=== PATIENT | female | born 1995 | race African-American/Black ===

== ENCOUNTER 2016-10-21 19:12 | Emergency (ER) | payer OTHER ==
[2016-10-21 19:27] VITALS: BP 119/60; TEMP 98.4; BMI 21.5
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
[2016-10-21 20:02] VITALS: PULSE 90
== END 2016-10-21 20:12 | disposition home or self-care (01) ==
LOC: JERFT 19:12
DX: S46.812A Strain of other muscles, fascia and tendons at shoulder and upper arm level, left arm, initial encounter (principal); V43.52XA Car driver injured in collision with other type car in traffic accident, initial encounter; Y92.414 Local residential or business street as the place of occurrence of the external cause; Y93.89 Activity, other specified; Y99.9 Unspecified external cause status
CPT/HCPCS: 99281-25

== ENCOUNTER 2017-08-27 15:21 | Emergency (ER) | payer SELFPAY ==
--- NOTE | 2017-08-27 15:30 | PDOC ---
Rapid Medical Evaluation Time Seen by Provider: 08/27/17 15:29 Medical Evaluation: Allergies Allergy/AdvReac Type Severity Reaction Status Date / Time No Known Allergies Allergy Verified 10/21/16 19:24 08/27/17 15:29 I have performed a brief in-person evaluation of this patient. The patient presents with a chief complaint of: call back for +chlamydia Pertinent physical exam findings: well appearing I have ordered the following: nothing The patient will proceed to the ED for further evaluation.
[2017-08-27 15:33] VITALS: BP 108/58; PULSE 100; TEMP 98.3; BMI 17.4
[2017-08-27] MEDS ORDERED: AZITHROMYCIN 1 GM PACKET PO ONE (15:47)
--- NOTE | 2017-08-27 15:47 | PDOC ---
History of Present Illness - General Chief Complaint: Urinary Problem Stated Complaint: REVISIT/ THROAT PAIN (TOLD TO RETURN) Time Seen by Provider: 08/27/17 15:29 History Source: Patient Exam Limitations: No Limitations - History of Present Illness Initial Comments: CHIEF COMPLAINT: 22 y/o afebrile female here for treatment for +chlamydia results. HISTORY OF PRESENT ILLNESS: Patient was seen here a few days ago for throat pain and had GC/chlamydia test. She was called back yesterday for +chlamydia results. She has no symptoms. Vital signs on arrival are notable for pulse of 100. REVIEW OF SYSTEMS: GENERAL/CONSTITUTIONAL: No fever/chills. No weakness. No weight change. HEAD, EYES, EARS, NOSE AND THROAT: No change in vision. No ear pain or discharge. No sore throat. CARDIOVASCULAR: No chest pain or shortness of breath. RESPIRATORY: No cough, wheezing, or hemoptysis. GASTROINTESTINAL: No abd pain, nausea, vomiting, diarrhea. GENITOURINARY: No dysuria, frequency, or change in urination. MUSCULOSKELETAL: No joint or muscle swelling or pain. No neck or back pain. SKIN: No rash or easy bruising. NEUROLOGIC: No headache, vertigo, loss of consciousness, or loss of sensation. PHYSICAL EXAM: GENERAL: The patient is awake, alert, and fully oriented, in no acute distress. HEAD: Normal with no signs of trauma. ENT: Pupils equal, round and reactive to light, extraocular movements intact, sclera anicteric, conjunctiva clear. Neck supple. LUNGS: Clear to auscultation bilaterally. Normal excursion. No respiratory distress or use of accessory muscles. CV: RRR, S1/S2, no MRG. Cap refill < 2 sec. ABDOMEN: Soft, non-distended, non-tender even to deep palpation, no hepatomegaly or splenomegaly, no masses. EXTREMITIES: Normal range of motion, no edema. NEUROLOGICAL: Normal speech, normal gait. CN II-XII grossly intact. SKIN: Warm, dry, normal turgor, no rashes or lesions noted. Past History - Past Medical History Allergies/Adverse Reactions: Allergies Allergy/AdvReac Type Severity Reaction Status Date / Time No Known Allergies Allergy Verified 08/27/17 15:29 Home Medications: Ambulatory Orders Ibuprofen [Motrin -] 600 mg PO QID #20 tablet 04/13/18 COPD: No - Suicide/Smoking/Psychosocial Hx Smoking History: Never smoked Have you smoked in the past 12 months: No Information on smoking cessation initiated: No Hx Alcohol Use: No Drug/Substance Use Hx: No Substance Use Type: None *Physical Exam - Vital Signs Last Vital Signs Temp Pulse Resp BP Pulse Ox 98.3 F 100 H 18 108/58 100 08/27/17 15:30 08/27/17 15:30 08/27/17 15:30 08/27/17 15:30 08/27/17 15:30 Medical Decision Making - Medical Decision Making A/P: 22 y/o female here for chlamydia treatment. Patient was given PO azithro and IM ceftriaxone. She was instructed to avoid sexual intercourse for 1 week and inform all sexual partners they should be treated as well. The patient verbalizes understanding of all instructions, has no further questions and is awaiting discharge. *DC/Admit/Observation/Transfer Diagnosis at time of Disposition: Chlamydia infection - Discharge Dispostion Condition at time of disposition: Good - Referrals Referrals: Becky Murguia DO [Primary Care Provider] - - Patient Instructions Printed Discharge Instructions: DI for Chlamydia Additional Instructions: Discharge Instructions: -You tested positive and were treated for chlamydia -Please avoid sexual intercourse for 1 week -Inform all sexual partners they should be tested and treated for chlamydia. - Post Discharge Activity
[2017-08-27] MEDS ORDERED: LIDOCAINE HCL 1%, 10 MG/ML (20ML VIAL) ONE (16:02)
[2017-08-27] MEDS ORDERED: cefTRIAXone SODIUM 1 GM VIAL ONE (16:02)
[2017-08-27] MEDS ORDERED: AZITHROMYCIN 250 MG TABLET ONE (16:02)
== END 2017-08-27 16:27 | disposition home or self-care (01) ==
LOC: JERFT 15:21
DX: A74.89 Other chlamydial diseases (principal)
CPT/HCPCS: 99281-25

== ENCOUNTER 2019-01-11 00:12 | Emergency (ER) | payer OTHER ==
[2019-01-11 01:42] VITALS: BMI 19.3
[2019-01-11] MEDS ORDERED: AZITHROMYCIN 500 MG TABLET PO ONE (01:50)
--- NOTE | 2019-01-11 01:51 | PDOC ---
History of Present Illness - General Chief Complaint: Abnormal Lab Results (Outside) Stated Complaint: GENERAL TESTING Time Seen by Provider: 01/11/19 01:44 History Source: Patient - History of Present Illness Initial Comments: 01/11/19 01:46 23 year old female reports exposure to chlamydia. partner now treated as per patient. patient is here for testing and treatment. denies NVD, abdominal pain, pelvic pain. Patient reports vaginal discharge. patient reports that she had oral sex with partner prior to partner being treated. LMP : 01/11/2019 01/11/19 01:51 Past History - Past Medical History Allergies/Adverse Reactions: Allergies Allergy/AdvReac Type Severity Reaction Status Date / Time No Known Allergies Allergy Verified 01/11/19 01:42 Home Medications: Ambulatory Orders NK [No Known Home Medication] 08/27/17 COPD: No - Suicide/Smoking/Psychosocial Hx Smoking History: Never smoked Have you smoked in the past 12 months: No Hx Alcohol Use: Yes Drug/Substance Use Hx: No Substance Use Type: None Review of Systems - Review of Systems Able to Perform ROS?: Yes Is the patient limited Setswana proficient: No : Yes: Other (vaginal discharge) *Physical Exam - Vital Signs Last Vital Signs Temp Pulse Resp BP Pulse Ox 98.1 F 85 14 109/61 100 01/11/19 00:15 01/11/19 00:01/11/19 00:15 01/11/19 00:01/11/19 00:15 - Physical Exam General Appearance: Yes: Appropriately Dressed Respiratory/Chest: positive: Lungs Clear, Normal Breath Sounds Gastrointestinal/Abdominal: positive: Normal Bowel Sounds, Soft. negative: Tender Musculoskeletal: positive: Normal Inspection Neurologic: positive: Fully Oriented, Alert, Normal Mood/Affect Progress Note - Progress Note Progress Note: chlamydia exposure P: ua: patient currently on menstrual period. no urinary symptoms. will not treat urine GC ceftriaxone/ azithromycin *DC/Admit/Observation/Transfer Diagnosis at time of Disposition: Exposure to chlamydia - Discharge Dispostion Disposition: HOME Condition at time of disposition: Fair - Referrals Referrals: Becky Murguia DO [Primary Care Provider] - - Patient Instructions Printed Discharge Instructions: Chlamydia: The Silent STD Additional Instructions: it is important to remain abstinent for 1 week after your partner is treated. - Post Discharge Activity
--- NOTE | 2019-01-11 02:01 | PDOC ---
*Physical Exam - Vital Signs Last Vital Signs Temp Pulse Resp BP Pulse Ox 98.1 F 85 14 109/61 100 01/11/19 00:15 01/11/19 00:15 01/11/19 00:15 01/11/19 00:15 01/11/19 00:15 Medical Decision Making - Medical Decision Making 01/11/19 02:01 Patient seen by the advanced practice provider under my direct supervision. Ancillary testing reviewed as necessary. I agree with plan as outlined by the advanced practice provider. *DC/Admit/Observation/Transfer Diagnosis at time of Disposition: Exposure to chlamydia - Discharge Dispostion Disposition: HOME Condition at time of disposition: Fair - Referrals Referrals: Becky Murguia DO [Primary Care Provider] - - Patient Instructions Printed Discharge Instructions: Chlamydia: The Silent STD Additional Instructions: it is important to remain abstinent for 1 week after your partner is treated. - Post Discharge Activity
[2019-01-11] MEDS ORDERED: AZITHROMYCIN 250 MG TABLET ONE (02:32)
[2019-01-11 02:46] LABS: EPI CELLS 19.2 /HPF (0-5/HPF); HYALINE CASTS 135 /lpf (0-8); URINE APPEARANCE TURBID; URINE BACTERIA 107.9 /hpf (NEGATIVE); URINE BILIRUBIN 1+ (NEGATIVE); URINE COLOR RED; URINE GLUCOSE (UA) NEGATIVE (NEGATIVE); URINE KETONE NEGATIVE (NEGATIVE); URINE LEUK ESTERASE 3+ (NEGATIVE); URINE NITRITE POSITIVE (NEGATIVE); URINE PROTEIN 3+ (NEGATIVE); URINE UROBILINOGEN 0.2 mg/dL (0.2-1.0); URINE WBC 433 /hpf (0-5)
[2019-01-11] MEDS ORDERED: LIDOCAINE HCL 1%, 10 MG/ML (20ML VIAL) ONE (03:09)
[2019-01-11 03:48] VITALS: BP 95/63; PULSE 89; TEMP 97.6
[2019-01-11 06:35] LABS: URINE RBC 2787.9 /hpf (0-4)
[2019-01-11 06:36] LABS: YEAST NONE SEEN (NEGATIVE)
== END 2019-01-11 03:15 | disposition home or self-care (01) ==
LOC: JER 00:12
DX: Z11.3 Encounter for screening for infections with a predominantly sexual mode of transmission (principal)
CPT/HCPCS: 36415; 81003; 84703; 87491; 87591; 99282-25

== ENCOUNTER 2019-12-08 22:09 | Emergency (ER) | payer OTHER ==
--- NOTE | 2019-12-08 22:34 | PDOC ---
Rapid Medical Evaluation Time Seen by Provider: 12/08/19 22:31 Medical Evaluation: Allergies Allergy/AdvReac Type Severity Reaction Status Date / Time No Known Allergies Allergy Verified 01/11/19 01:42 12/08/19 22:32 I have performed a brief in-person evaluation of this patient. The patient presents with a chief complaint of:sore throat this am, no other sxs. Child w/ fever and n/v at home. No recent travel Pertinent physical exam findings:well jolie, stable I have ordered the following:nothing The patient will proceed to the ED for further evaluation. Discharge Disposition - Diagnosis Sore throat - Referrals - Patient Instructions - Post Discharge Activity
[2019-12-08 22:39] VITALS: BP 119/76; PULSE 100; TEMP 98.8; BMI 19.2
--- NOTE | 2019-12-08 23:37 | PDOC ---
History of Present Illness - General Chief Complaint: Sore Throat Stated Complaint: SORE THROAT Time Seen by Provider: 12/08/19 22:31 History Source: Patient Exam Limitations: No Limitations - History of Present Illness Initial Comments: 12/08/19 23:41 HPI: This is a 24 y/o female with no PMH presenting to the ED due to a sore throat and sinus congestion which began this morning. She woke up with the sore throat and became congested throughout the day. She also admits to mild myalgias, and a headache. Her daughter also began experiencing symptoms as well. The patient denies chills/fever, sick contacts, abdominal pain, n/v, diarrhea, constipation, or ear pain. ROS: GENERAL/CONSTITUTIONAL: No fever. Yes chills. No weakness. HEAD, EYES, EARS, NOSE AND THROAT: No ear pain or discharge. Yes sore throat. CARDIOVASCULAR: No chest pain or shortness of breath. RESPIRATORY: No cough, wheezing GASTROINTESTINAL: No nausea, vomiting, diarrhea GENITOURINARY: No dysuria, frequency, or change in urination. MUSCULOSKELETAL: Yes muscle aches. No neck or back pain. SKIN: No rash NEUROLOGIC: Yes headache, No change in strength/sensation. PMH: Seasonal allergies PSx: Denied Meds: Denied Allergies: Seasonal allergies PE: GENERAL: Awake, alert, and fully oriented, in no acute distress. Patient sitting in room with daughter. Conversing normally. HEAD: No signs of trauma EYES: PERRL, EOMI, sclera anicteric, conjunctiva clear ENT: TM visualized nares patent, oropharynx clear without exudates. Moist mucosa. NECK: Normal ROM, supple, no lymphadenopathy LUNGS: Breath sounds equal, clear to auscultation bilaterally. No wheezes, and no crackles HEART: Regular rate and rhythm, normal S1 and S2, no murmurs, rubs or gallops ABDOMEN: Soft, nontender, normoactive bowel sounds. No guarding, no rebound. No masses EXTREMITIES: Normal range of motion, no edema. NEUROLOGICAL: Cranial nerves II through XII grossly intact. Normal speech, normal gait SKIN: Warm, Dry, normal turgor, no rashes or lesions noted. 12/08/19 23:43 MDM: This is a 24 y/o female with a PMH of allergies presenting to the ED due to sore throat and nasal congestion that began this morning. - Her daughter is sick as well - Patient is afebrile, vitals stable - Most likely a viral illness - Will give ibuprofen, rapid strep, reassess. Rapid stress negative. Will d/c with instructions to treat symptomatically and return precautions. Past History - Medical History Allergies/Adverse Reactions: Allergies Allergy/AdvReac Type Severity Reaction Status Date / Time No Known Allergies Allergy Verified 12/08/19 22:38 Home Medications: Ambulatory Orders NK [No Known Home Medication] 08/27/17 COPD: No - Psycho-Social/Smoking History Smoking History: Never smoked Have you smoked in the past 12 months: No *Physical Exam - Vital Signs Last Vital Signs Temp Pulse Resp BP Pulse Ox 98.8 F 100 H 18 119/76 99 12/08/19 22:35 12/08/19 22:35 12/08/19 22:35 12/08/19 22:35 12/08/19 22:35 Discharge - Discharge Information Problems reviewed: Yes Clinical Impression/Diagnosis: Sore throat Disposition: HOME - Admission No - Follow up/Referral - Patient Discharge Instructions Patient Printed Discharge Instructions: DI for Sinusitis, DI for Viral Pharyngitis Additional Instructions: You were seen in the ED today for a sore throat and congestion. We did a rapid Strep test which came back Home Care and Follow Up: - Make sure you are drinking plenty of fluids while you are sick. Increase your normal fluid intake. It is OK if you do not feel like eating as long as you are staying well hydrated - You may use medications such as acetaminophen (Tylenol) 650-1000mg or ibuprofen (Advil, Motrin) 400-600mg every 6 hours as needed for pain or fever over 101F - Consider placing a humidifier in your room overnight to help relieve con gestion and reduce drying of your nose and mouth. - Use throat lozenges (cough drops) for sore throat or cough - If you use additional cold medications, make sure they do not contain medicines you are already taking such as acetaminophen or ibuprofen - You should feel better within a week, though cough can sometimes last longer. If you are not feeling better in a week, follow up with your primary doctor. - Seek immediate care if you have worsening symptoms, difficulty breathing, you are unable to stay hydrated, you develop high fevers over 104F that do not come down with medication, or you have any other medical emergency. - Post Discharge Activity
[2019-12-08] MEDS ORDERED: IBUPROFEN 400 MG TABLET (FP) PO ONE ×2 (23:51→23:57)
--- NOTE | 2019-12-09 03:45 | PDOC ---
Documentation entered by Juanpablo Cramer SCRIBE, acting as scribe for Haylee Slaughter MD. Haylee Slaughter MD: This documentation has been prepared by the Bela goncalves Xhesika, SCRIBE, under my direction and personally reviewed by me in its entirety. I confirm that the documentation accurately reflects all work, treatment, procedures, and medical decision making performed by me. Attending Attestation - Resident Resident Name: Ida Junior - ED Attending Attestation I have performed the following: I have examined & evaluated the patient, The case was reviewed & discussed with the resident, I agree w/resident's findings & plan, Exceptions are as noted - HPI HPI: 12/08/19 23:46 24 year old female with no significant PMH of who presents to the emergency department for sore throat and headache. Pt states she has a child at home with Tmax 101.3 and vomiting. pt herself has myalgia, fatigue, sore throat and nasal congestion. no vomiting. no urinary complaints other than her daughter, no known sick contacts. no rash. no cough no sob. The patient denies chest pain, shortness of breath. Denies fever, chills, cough, nausea, vomiting, diarrhea and constipation. Denies dysuria, frequency, urgency and hematuria. 12/09/19 03:43 - Physicial Exam PE: 12/09/19 03:44 Awake alert no acute distress throat is without exudates minimal erythema TMs are clear bilaterally heart is regular 30 murmurs or gallops lungs are clear throughout normal effort abdomen is soft and nontender skin is warm and dry no rash patient is awake alert and oriented x3 neurologically gait is normal - Medical Decision Making 12/09/19 03:44 24-year-old female here with myalgias sore throat nasal congestion likely a viral syndrome her daughter is also sick due to her sore throat a strep culture was sent rapid strep was negative patient was given Tylenol for her symptoms discharged home likely viral syndrome Discharge - Discharge Information Problems reviewed: Yes Clinical Impression/Diagnosis: Sore throat Disposition: HOME - Follow up/Referral - Patient Discharge Instructions Patient Printed Discharge Instructions: DI for Sinusitis, DI for Viral Pharyngitis Additional Instructions: You were seen in the ED today for a sore throat and congestion. We did a rapid Strep test which came back Home Care and Follow Up: - Make sure you are drinking plenty of fluids while you are sick. Increase your normal fluid intake. It is OK if you do not feel like eating as long as you are staying well hydrated - You may use medications such as acetaminophen (Tylenol) 650-1000mg or ibuprofen (Advil, Motrin) 400-600mg every 6 hours as needed for pain or fever over 101F - Consider placing a humidifier in your room overnight to help relieve congestion and reduce drying of your nose and mouth. - Use throat lozenges (cough drops) for sore throat or cough - If you use additional cold medications, make sure they do not contain medicines you are already taking such as acetaminophen or ibuprofen - You should feel better within a week, though cough can sometimes last longer. If you are not feeling better in a week, follow up with your primary doctor. - Seek immediate care if you have worsening symptoms, difficulty breathing, you are unable to stay hydrated, you develop high fevers over 104F that do not come down with medication, or you have any other medical emergency. - Post Discharge Activity
== END 2019-12-09 02:18 | disposition home or self-care (01) ==
LOC: JER 22:09
DX: J02.9 Acute pharyngitis, unspecified (principal)
CPT/HCPCS: 87070; 87077; 87880; 99283-25

== ENCOUNTER 2020-12-20 21:02 | Emergency (ER) | payer OTHER ==
[2020-12-20 21:10] VITALS: TEMP 97; BMI 23.2
[2020-12-20 23:14] LABS: BASO % 0.6 % (0-2.0); EOS % 1.5 % (0-4.5); HEMATOCRIT 39.3 % (32.4-45.2); HEMOGLOBIN 13.6 GM/dL (10.7-15.3); LYMPH % 15.5 % (8-40); MCHC 34.6 g/dl (32.0-36.0); MEAN CELL VOLUME 86.7 fl (80-96); MONO % 5.8 % (3.8-10.2); NEUT % 76.6 % (42.8-82.8); PLATELET COUNT 180 10^3/uL (134-434); RBC 4.54 M/mm3 (3.60-5.2); RDW 13.5 % (11.6-15.6); WHITE BLOOD COUNT 7.1 K/mm3 (4.0-10.0)
[2020-12-20] MEDS ORDERED: ACETAMINOPHEN 325 MG TABLET (FP) PO ONE (23:34)
[2020-12-20 23:49] LABS: ALBUMIN 4.2 g/dl (3.4-5.0); BLOOD UREA NITROGEN 13.1 mg/dL (7-18); CALCIUM 8.7 mg/dL (8.5-10.1)
[2020-12-20 23:52] LABS: CREATININE 0.8 mg/dL (0.55-1.3)
[2020-12-20 23:54] LABS: BILIRUBIN,TOTAL 0.4 mg/dL (0.2-1); TOT PROT 7.5 g/dl (6.4-8.2)
[2020-12-21] MEDS ORDERED: ACETAMINOPHEN 325 MG TABLET (FP) ONE (00:36)
[2020-12-21 01:29] LABS: EPI CELLS 9 /uL (0-25.1); HYALINE CASTS 0 /uL (0-3.1); URINE APPEARANCE CLEAR; URINE BACTERIA 71 /uL (0-1359); URINE BILIRUBIN NEGATIVE (NEGATIVE); URINE COLOR YELLOW; URINE GLUCOSE (UA) NEGATIVE (NEGATIVE); URINE KETONE TRACE (NEGATIVE); URINE LEUK ESTERASE NEGATIVE (NEGATIVE); URINE NITRITE NEGATIVE (NEGATIVE); URINE PROTEIN NEGATIVE (NEGATIVE); URINE RBC 107 /uL (0-23.9); URINE WBC 2 /uL (0-25.8)
[2020-12-21] MEDS ORDERED: AZITHROMYCIN 500 MG TABLET PO ONE (01:43)
[2020-12-21] MEDS ORDERED: cefTRIAXone SODIUM 1 GM VIAL ONE (02:00)
[2020-12-21] MEDS ORDERED: AZITHROMYCIN 500 MG TABLET ONE (02:09)
[2020-12-21] MEDS ORDERED: LIDOCAINE HCL 1%, 10 MG/ML (20ML VIAL) ONE (02:13)
[2020-12-21 02:32] VITALS: BP 112/68; PULSE 60
== END 2020-12-21 02:34 | disposition home or self-care (01) ==
LOC: JER 21:02
DX: R10.30 Lower abdominal pain, unspecified (principal)
CPT/HCPCS: 36415; 76830-TC; 80053; 81003; 84703; 85025; 86780; 87491; 87591; 99284-25

== ENCOUNTER 2020-12-25 04:24 | Emergency (ER) | payer OTHER ==
[2020-12-25 04:47] VITALS: BMI 22.4
[2020-12-25 05:25] LABS: BASO % 0.3 % (0-2.0); EOS % 0.7 % (0-4.5); HEMATOCRIT 38.9 % (32.4-45.2); HEMOGLOBIN 13.4 GM/dL (10.7-15.3); LYMPH % 4.8 % (8-40); MCH 30.2 pg (25.7-33.7); MCHC 34.4 g/dl (32.0-36.0); MEAN CELL VOLUME 87.7 fl (80-96); MEAN PLT VOLUME 10.5 fl (7.5-11.1); MONO % 3.4 % (3.8-10.2); NEUT % 90.8 % (42.8-82.8); PLATELET COUNT 176 10^3/uL (134-434); RBC 4.43 M/mm3 (3.60-5.2); RDW 13.4 % (11.6-15.6); WHITE BLOOD COUNT 14.4 K/mm3 (4.0-10.0)
[2020-12-25] MEDS ORDERED: ACETAMINOPHEN 500 MG TABLET (FP) PO ONE (05:34)
[2020-12-25] MEDS ORDERED: SODIUM CHLORIDE 1,000 ML IV STA (05:34)
[2020-12-25] MEDS ORDERED: ONDANSETRON 4 MG/2 ML VIAL IVPUSH ONE (05:34)
[2020-12-25] MEDS ORDERED: FAMOTIDINE 20 MG/50 ML IVPB 20 MG/50 ML MG IVPB ONE ×2 (05:34→05:42)
[2020-12-25] MEDS ORDERED: MAG HYDROX/AL HYDROX/SIMETH 30 ML UNIT-DOSE CUP PO ONE (05:34)
[2020-12-25] MEDS ORDERED: ACETAMINOPHEN 325 MG TABLET (FP) ONE (05:42)
[2020-12-25] MEDS ORDERED: ONDANSETRON 4 MG/2 ML VIAL ONE (05:42)
[2020-12-25] MEDS ORDERED: MAG HYDROX/AL HYDROX/SIMETH 30 ML UNIT-DOSE CUP ONE (05:42)
[2020-12-25 05:48] LABS: ALBUMIN 4.3 g/dl (3.4-5.0); BLOOD UREA NITROGEN 12.9 mg/dL (7-18); CALCIUM 8.9 mg/dL (8.5-10.1)
[2020-12-25 05:52] LABS: CREATININE 0.9 mg/dL (0.55-1.3)
[2020-12-25 05:53] LABS: BILIRUBIN,TOTAL 0.4 mg/dL (0.2-1); TOT PROT 7.6 g/dl (6.4-8.2)
[2020-12-25 06:31] LABS: URINE APPEARANCE CLEAR; URINE BILIRUBIN NEGATIVE (NEGATIVE); URINE COLOR YELLOW; URINE GLUCOSE (UA) NEGATIVE (NEGATIVE); URINE KETONE NEGATIVE (NEGATIVE); URINE LEUK ESTERASE NEGATIVE (NEGATIVE); URINE NITRITE NEGATIVE (NEGATIVE); URINE PROTEIN NEGATIVE (NEGATIVE); URINE UROBILINOGEN 0.2 mg/dL (0.2-1.0)
[2020-12-25] MEDS ORDERED: morphine CARPU-JECT 2 MG/1 ML DISP.SYRIN IVPUSH ONE (10:36)
[2020-12-25] MEDS ORDERED: SODIUM CHLORIDE 500 ML IV STA (10:37)
[2020-12-25] MEDS ORDERED: MORPHINE SULFATE 2 MG/ML VIAL ONE (10:39)
[2020-12-25 10:50] VITALS: BP 115/71; PULSE 82; TEMP 98.5
== END 2020-12-25 15:04 | disposition home or self-care (01) ==
LOC: JER 04:24
PROC: 3E033GC Introduction of Other Therapeutic Substance into Peripheral Vein, Percutaneous Approach (ICD-10-PCS; principal; 2020-12-25)
PROC: 3E033NZ Introduction of Analgesics, Hypnotics, Sedatives into Peripheral Vein, Percutaneous Approach (ICD-10-PCS; 2020-12-25)
PROC: 3E033GC Introduction of Other Therapeutic Substance into Peripheral Vein, Percutaneous Approach (ICD-10-PCS; 2020-12-25)
PROC: 3E0337Z Introduction of Electrolytic and Water Balance Substance into Peripheral Vein, Percutaneous Approach (ICD-10-PCS; 2020-12-25)
PROC: 3E0337Z Introduction of Electrolytic and Water Balance Substance into Peripheral Vein, Percutaneous Approach (ICD-10-PCS; 2020-12-25)
DX: R10.13 Epigastric pain (principal)
CPT/HCPCS: 36415; 74177-TC; 76705-TC; 80053; 81003; 83690; 84703; 85025; 87077; 87086; 99285-25; C9803; Q9967; U0003; U0005

== ENCOUNTER 2025-03-06 20:26 | Emergency (ER) | payer OTHER ==
[2025-03-06 20:37] VITALS: BP 115/72; RESP 18; TEMP 98.4; BMI 22.1
[2025-03-06 21:42] LABS: HCG,QUALITATIVE URINE Negative
[2025-03-06 21:47] LABS: URINE APPEARANCE CLOUDY; URINE BILIRUBIN NEGATIVE (NEGATIVE); URINE COLOR YELLOW; URINE GLUCOSE (UA) NEGATIVE (NEGATIVE); URINE KETONE NEGATIVE (NEGATIVE)
[2025-03-06 21:48] LABS: URINE LEUK ESTERASE 3+ (NEGATIVE); URINE NITRITE NEGATIVE (NEGATIVE); URINE PROTEIN 1+ (NEGATIVE); URINE UROBILINOGEN 1.0 mg/dL (0.2-1.0)
[2025-03-06 22:16] VITALS: PULSE 85
== END 2025-03-06 22:22 | disposition home or self-care (01) ==
LOC: JERFT 20:26
DX: N30.90 Cystitis, unspecified without hematuria (principal); R39.15 Urgency of urination
CPT/HCPCS: 81003; 84703; 87086; 99283-25